=== PATIENT | female | born 1990 | race Asian ===

== ENCOUNTER 2016-09-06 00:12 | Emergency (ER) | payer OTHER ==
[2016-09-06] MEDS ORDERED: KETOROLAC 60 MG/2 ML VIAL IVP STA (00:36)
[2016-09-06] MEDS ORDERED: SODIUM CHLORIDE 0.9% 1,000 ML IV ONE ×2 (00:36→00:47)
[2016-09-06] MEDS ORDERED: KETOROLAC 30 MG/ML VIAL ONE (00:47)
[2016-09-06] MEDS ORDERED: cefTRIAXone 1 GM in SODIUM CHLORIDE 0.9% MINIBAG 100 ML IV STA (01:27)
[2016-09-06] MEDS ORDERED: DOXYCYCLINE 100 MG TABLET PO STA (01:27)
[2016-09-06] MEDS ORDERED: HYDROmorphone 1 MG/ML SYRINGE IVP STA (01:27)
[2016-09-06] MEDS ORDERED: cefTRIAXone 1 GM VIAL ONE (01:30)
[2016-09-06] MEDS ORDERED: HYDROmorphone 1 MG/ML SYRINGE ONE (01:30)
[2016-09-06] MEDS ORDERED: DOXYCYCLINE 100 MG TABLET PO ONE (01:30)
== END 2016-09-06 02:08 | disposition home or self-care (01) ==
DX: N76.0 Acute vaginitis (principal); R10.33 Periumbilical pain
CPT/HCPCS: 36415; 80053; 81003; 81025; 83690; 85025; 87210; 87491; 87591; 96374; 96375; 99284; A9270; J1170

== ENCOUNTER 2017-03-14 17:12 | Emergency (ER) | payer OTHER ==
[2017-03-14 17:18] VITALS: BP 107/67
[2017-03-14 17:36] LABS: BILIRUBIN,URINE NEGATIVE (NEGATIVE)
[2017-03-14 17:37] LABS: HCG UR QUAL NEGATIVE
[2017-03-14 17:43] LABS: UA w/ MICROSCOPIC CHARGE YES; UR CULTURE IF IND INDICATED
[2017-03-14] MEDS ORDERED: PHENAZOPYRIDINE 100 MG TABLET PO STA (17:44)
[2017-03-14] MEDS ORDERED: SULFAMETH/TRIMETH DS 800/160 MG TABLET PO STA (17:44)
--- NOTE | 2017-03-14 17:44 | ED Physician Documentation ---
History of Present Illness - Stated complaint Stated Complaint: FEMALE - Chief complaint Chief Complaint: UTI - History obtained from History obtained from: Patient - History of Present Illness Timing: Other (2 days frequency and dysuria c/w prior utis. No flank pain but maybe fever.) Review of Systems Constitutional: reports: Fever, Fatigue. denies: Chills Cardiac: denies: Chest pain / pressure, Palpitations Respiratory: denies: Dyspnea, Cough GI: denies: Nausea, Vomiting, Diarrhea : reports: Dysuria, Frequency PD PAST MEDICAL HISTORY - Past Medical History Cardiovascular: None Respiratory: None Neuro: None Endocrine/Autoimmune: None GI: None NETWORK MANAGER: None - Past Surgical History Past Surgical History: No - Present Medications Home Medications: Ambulatory Orders Medication Instructions Recorded Confirmed Phenazopyridine HCl [Pyridium] 200 mg PO TID #6 tablet 03/14/17 Sulfamethoxazole/Trimethoprim 1 each PO BID 7 Days tablet 03/14/17 [Sulfamethoxazole-Tmp Ds Tablet] - Allergies Allergies/Adverse Reactions: Allergies Allergy/AdvReac Type Severity Reaction Status Date / Time Seaweed Allergy Unknown Uncoded 09/06/16 00:17 - Social History Does the pt smoke?: No Smoking Status: Never smoker Does the pt drink ETOH?: No Does the pt have substance abuse?: No - Immunizations Immunizations are current?: Yes PD ED PE NORMAL - Vitals Vital signs reviewed: Yes - General General: Alert and oriented X 3, No acute distress - Abdomen Abdomen: Soft, Non tender - Back Back: No CVA TTP - Extremities Extremities: No edema, No calf tenderness / cord - Neuro Neuro: Alert and oriented X 3, Normal speech - Psych Psych: Normal mood, Normal affect Results - Vitals Vitals: Vital Signs - 24 hr 03/14/17 17:15 Temperature 36.2 C L Heart Rate 68 Respiratory 16 Rate Blood Pressure 107/67 O2 Saturation 100 Oxygen O2 Source Room air - Labs Labs: Laboratory Tests 03/14/17 03/14/17 17:20 17:20 Urine Color LT. YELLOW Urine Clarity CLEAR Urine pH 6.0 Ur Specific [place] <=1.005 <=1.005 Urine Protein NEGATIVE Urine Glucose (UA) NEGATIVE Urine Ketones NEGATIVE Urine Occult Blood TRACE-INTA Urine Nitrite NEGATIVE Urine Bilirubin NEGATIVE Urine Urobilinogen 0.2 (NORMAL) Ur Leukocyte Esterase TRACE H Urine RBC 0-5 Urine WBC 6-10 H Ur Squamous Epith Cells NONE SEEN Urine Bacteria None Seen Ur Microscopic Review INDICATED Urine Culture Comments INDICATED Urine HCG, Qual NEGATIVE Departure - Departure Disposition: 01 Home, Self Care Clinical Impression: Pyelonephritis Condition: Good Record reviewed to determine appropriate education?: Yes Instructions: Pyelonephritis Dc Prescriptions: Phenazopyridine HCl [Pyridium] 200 mg PO TID #6 tablet Sulfamethoxazole/Trimethoprim [Sulfamethoxazole-Tmp Ds Tablet] 1 each PO BID 7 Days tablet Comments: We will culture your urine, the results should be done in 48-72 hours. If an antibiotic change is necessary we will call you. Return if worse in the meantime, especially if you develop increasing flank pain, fevers, or cannot keep down the medication. Call your doctor to arrange a follow-up appointment, make the next available appointment. In the interim, return anytime if worse or if new symptoms develop. Forms: Activity restrictions
[2017-03-14] MEDS ORDERED: PHENAZOPYRIDINE 100 MG TABLET PO ONE (18:31)
[2017-03-14] MEDS ORDERED: SULFAMETH/TRIMETH DS 800/160 MG TABLET PO ONE (18:31)
== END 2017-03-14 18:31 | disposition home or self-care (01) ==
LOC: ED 17:12
DX: N12 Tubulo-interstitial nephritis, not specified as acute or chronic (principal)
CPT/HCPCS: 81001; 81025; 87086; 99283; A9270; 81003

== ENCOUNTER 2017-05-19 05:32 | Emergency (ER) | payer OTHER ==
--- NOTE | 2017-05-19 05:51 | ED Physician Documentation ---
PD HPI FEMALE - History obtained from History obtained from: Patient, Family - History of Present Illness Timing - onset: How many days ago (3) Timing - details: Gradual onset, Still present Associated symptoms: Pelvic pain, Vaginal discharge, Dysuria. No: Vaginal bleeding, Genital sore/lesion Similar symptoms before: No diagnosis Recently seen: Emergency Dept <Nathen Aguirre - Last Filed: 05/19/17 07:16> - History of Present Illness Timing - duration: Days (3) Contributing factors: Other (trying to get , irregular periods). No: Oral contraceptive <Niko Barnes - Last Filed: 05/19/17 08:54> - Stated complaint Stated Complaint: LOWER ABDOMINAL PAIN - Chief complaint Chief Complaint: Abd Pain - Additional information Additional information: Patient is a 27 year old female with no significant past medical history who is presenting to the emergency dpeartment for a three day history of pelvic pain. Patient states that it is worse on her left, but it across her lower abdomen. (Nathen Aguirre) Review of Systems Constitutional: denies: Fever, Chills Eyes: denies: Loss of vision, Photophobia Ears: denies: Ear pain Nose: reports: Reviewed and negative Throat: reports: Reviewed and negative Cardiac: reports: Reviewed and negative Respiratory: denies: Dyspnea, Cough, Wheezing GI: reports: Abdominal Pain. denies: Nausea, Vomiting, Constipation, Diarrhea : reports: Discharge. denies: Dysuria, Frequency, Vaginal bleeding Musculoskeletal: denies: Neck pain, Back pain, Extremity pain Neurologic: denies: Generalized weakness, Focal weakness, Numbness Immunocompromised: denies: Immunocompromised <Nathen Aguirre - Last Filed: 05/19/17 07:16> PD PAST MEDICAL HISTORY - Past Medical History Cardiovascular: None Respiratory: None Neuro: None Endocrine/Autoimmune: None GI: None LAY OUT TECHNICIAN: None - Past Surgical History Past Surgical History: No - Social History Does the pt smoke?: No Smoking Status: Never smoker Does the pt drink ETOH?: No Does the pt have substance abuse?: No - Immunizations Immunizations are current?: Yes <Nathen Aguirre - Last Filed: 05/19/17 07:16> <Niko Barnes - Last Filed: 05/19/17 08:54> - Allergies Allergies/Adverse Reactions: Allergies Allergy/AdvReac Type Severity Reaction Status Date / Time Seaweed Allergy Unknown Uncoded 05/19/17 05:39 PD ED PE NORMAL - Vitals Vital signs reviewed: Yes - General General: Alert and oriented X 3, No acute distress, Well developed/nourished - HEENT HEENT: Atraumatic, PERRL - Neck Neck: Supple, no meningeal sign, No JVD - Cardiac Cardiac: RRR, No murmur - Respiratory Respiratory: No respiratory distress - Abdomen Abdomen: Soft, Non tender, Non distended - Derm Derm: Normal color, Warm and dry, No rash - Extremities Extremities: No deformity, No tenderness to palpate, Normal ROM s pain - Neuro Neuro: Alert and oriented X 3, No motor deficit, No sensory deficit, Normal speech - Psych Psych: Normal mood <Nathen Aguirre - Last Filed: 05/19/17 07:16> PD ED PE EXPANDED - Female Female : Vaginal Discharge (mild vaginal discharge and cervicitis), Cultures sent, Special Education Aide present. No: CMT <Nathen Aguirre - Last Filed: 05/19/17 07:16> Results - Rads (name of study) Pelvic non-OB with Doppler Radiology: Prelim report reviewed (Impression: 1. Small complicated right ovarian cyst, corpus luteum versus hemorrhagic cyst. 2. Otherwise unremarkable pelvic ultrasound.), EMP read indepedently, See rad report <Niko Barnes - Last Filed: 05/19/17 08:54> - Vitals Vitals: Vital Signs - 24 hr 05/19/17 05/19/17 05:36 07:29 Temperature 36.4 C L Heart Rate 79 65 Respiratory 16 15 Rate Blood Pressure 97/71 93/65 O2 Saturation 98 100 Oxygen O2 Source Room air - Labs Labs: Laboratory Tests 05/19/17 05/19/17 05/19/17 03:40 05:57 05:57 WBC 6.7 RBC 4.48 Hgb 13.3 Hct 39.9 MCV 89.1 MCH 29.6 MCHC 33.2 RDW 12.9 Plt Count 263 MPV 7.7 L Neut # 4.2 Lymph # 1.9 [place] # 0.5 Eos # 0.0 Baso # 0.0 Absolute Nucleated RBC 0.00 Nucleated RBC % 0.0 Sodium 135 Potassium 3.4 L Chloride 104 Carbon Dioxide 24 Anion Gap 7.0 BUN 13 Creatinine 0.6 Estimated GFR (MDRD) 122 Glucose 85 Calcium 8.9 Total Bilirubin 0.7 AST 21 ALT 19 Alkaline Phosphatase 34 L Total Protein 8.0 Albumin 4.5 Globulin 3.5 Albumin/Globulin Ratio 1.3 Lipase 24 Urine Color YELLOW Urine Clarity CLEAR Urine pH 6.0 Ur Specific [place] 1.010 Urine Protein NEGATIVE Urine Glucose (UA) NEGATIVE Urine Ketones NEGATIVE Urine Occult Blood NEGATIVE Urine Nitrite NEGATIVE Urine Bilirubin NEGATIVE Urine Urobilinogen 0.2 (NORMAL) Ur Leukocyte Esterase NEGATIVE Ur Microscopic Review NOT INDICATED Urine Culture Comments NOT INDICATED Urine HCG, Qual NEGATIVE PD MEDICAL DECISION MAKING <Nathen Aguirre - Last Filed: 05/19/17 07:16> - ED course Complexity details: reviewed old records, reviewed results, considered differential, d/w patient <Niko Barnes - Last Filed: 05/19/17 08:54> - ED course ED course: 27-year-old female with a 3 day history of lower pelvic cramping pain has right ovarian cyst hemorrhagic versus corpus luteum on the right side. I suspect this may be the cause of her pelvic pain. I have asked patient to follow-up with her LAY OUT TECHNICIAN doctor. She does not want pain medications. She states she has not even tried ibuprofen or Tylenol as the pain has not bothered her that bad ( at max) (Niko Barnes) Departure <Nathen Aguirre - Last Filed: 05/19/17 07:16> <Niko Barnes - Last Filed: 05/19/17 08:54> - Departure Disposition: 01 Home, Self Care Clinical Impression: Pelvic pain Ovarian cyst Qualifiers: Laterality: right Qualified Code(s): N83.201 - Unspecified ovarian cyst, right side Condition: Good Instructions: ED Pelvic Pain UKO, ED Cyst Ovarian Follow-Up: primary,care provider [Other] - Within 3 Days Comments: Your diagnostics today were withing normal limits. You did have some vaginal discharge and cervicitis and cultures were sent. You will be called in the next three days if the cultures are positive. You should refrain from sexual intercourse until you get the results back. You should follow up with your doctor/ob if your symptoms persist. You may return to the emergency department at any time for new worsening or uncontrollable symptoms. Follow up with your LAY OUT TECHNICIAN doctor about the ovarian cyst.
[2017-05-19 06:15] LABS: BILIRUBIN,URINE NEGATIVE (NEGATIVE)
[2017-05-19 06:17] LABS: HCG UR QUAL NEGATIVE; UA CHARGE (STRIP ONLY) YES; UR CULTURE IF IND NOT INDICATED
[2017-05-19 06:31] LABS: BASOPHILS % (AUTO) 0.7 %; EOSINOPHILS % (AUTO) 0.6 %; HCT - HEMATOCRIT 39.9 % (37.0-47.0); HGB - HEMOGLOBIN 13.3 g/dL (12.0-16.0); LYMPHOCYTES # (AUTO) 1.9 10^3/uL (1.5-3.5); MEAN CORPUSCULAR HEMOGLOBIN 29.6 pg (27.0-31.0); MEAN CORPUSCULAR HGB CONC 33.2 g/dL (32.0-36.0); MEAN CORPUSCULAR VOLUME 89.1 fL (81.0-99.0); MEAN PLATELET VOLUME 7.7 fL (7.9-10.8); MONOCYTES # (AUTO) 0.5 10^3/uL (0.0-1.0); MONOCYTES % (AUTO) 6.7 %; NEUTROPHILS # (AUTO) 4.2 10^3/uL (1.5-6.6); RED BLOOD COUNT 4.48 10^6/uL (4.20-5.40); RED CELL DISTRIBUTION WIDTH 12.9 % (12.0-15.0); UNCORRECTED WHITE BLOOD COUNT 6.7 x10^3/uL; WHITE BLOOD COUNT 6.7 x10^3/uL (4.8-10.8)
[2017-05-19 06:41] LABS: ALBUMIN/GLOBULIN RATIO 1.3 (1.0-2.2); BILIRUBIN,TOTAL 0.7 mg/dL (0.2-1.0); CALCIUM 8.9 mg/dL (8.5-10.3); CREATININE 0.6 mg/dL (0.4-1.0); POTASSIUM 3.4 mmol/L (3.5-5.0)
--- NOTE | 2017-05-19 08:28 | Ultrasound Preliminary Report ---
Exam: US PELVIC NON OB W/DOPPLER LTD IMPRESSION: 1. Small complicated right ovarian cyst, corpus luteum versus hemorrhagic cyst. 2. Otherwise unremarkable pelvic ultrasound. [facility] SITE ID: [id number]
--- NOTE | 2017-05-19 08:30 | Ultrasound Report ---
EXAM: PELVIC ULTRASOUND EXAM DATE: 05/19/2017 08:15 AM. CLINICAL HISTORY: Left sided pelvic pain. COMPARISON: None. TECHNIQUE: Realtime transabdominal pelvic scan performed to identify the uterus and adnexa and as an overview of other pelvic structures, followed by transvaginal scan to provide greater detail of the u terus and adnexa, with static image documentation. FINDINGS: Uterus: 7.0 x 4.4 x 5.7 cm, volume 91 cc. Anteverted position. Normal overall size and echotexture. Masses: None. Endometrium: 14 mm. Proliferative appearance. Cervix: Unremarkable. Right Ovary: 4.2 x 1.8 x 3.7 cm, volume 14 cc. Normal echotexture and blood flow. Complicated 2.1 cm cystic structure, corpus luteum versus hemorrhagic cyst. Left Ovary: 2.9 x 1.6 x 2.1 cm, volume 5.1 cc. Normal echotexture and blood flow. Free Fluid: None. Other: None. IMPRESSION: 1. Small complicated right ovarian cyst, corpus luteum versus hemorrhagic cyst. 2. Otherwise unremarkable pelvic ultrasound. [facility] Referring Provider Line: [phone] SITE ID: [id number]
--- NOTE | 2017-05-19 08:32 | Ultrasound Preliminary Report ---
Exam: US TRANSVAGINAL Please see report for accession [id number]. SITE ID: [id number]
--- NOTE | 2017-05-19 08:35 | Ultrasound Report ---
Please see report for accession [id number]. Referring Provider Line: [phone] SITE ID: [id number]
[2017-05-19 09:06] VITALS: BP 89/58
== END 2017-05-19 09:08 | disposition home or self-care (01) ==
LOC: ED 05:32
DX: N83.201 Unspecified ovarian cyst, right side (principal); R10.2 Pelvic and perineal pain
CPT/HCPCS: 36415; 76830; 76856; 80053; 81001; 81003; 81025; 83690; 85025; 87086; 87491; 87591; 93976; 99283

== ENCOUNTER 2018-05-21 22:48 | Emergency (ER) | payer OTHER ==
[2018-05-21] MEDS ORDERED: diphenhydrAMINE INJ 50 MG/ML VIAL IM STA (23:05)
[2018-05-21] MEDS ORDERED: EPINEPHrine 1 MG/ML AMP IM STA (23:05)
[2018-05-21] MEDS ORDERED: predniSONE 20 MG TABLET PO STA (23:05)
--- NOTE | 2018-05-21 23:27 | ED Physician Documentation ---
History of Present Illness - Stated complaint Stated Complaint: ALLERGIC REACTION - Chief complaint Chief Complaint: Allergic Rx - History obtained from History obtained from: Patient, Family - History of Present Illness Timing: How many hours ago (2) Pain level max: 0 Pain level now: 0 - Additonal information Additional information: 28-year-old female who states that she was dying her hair tonight when she rash and itching. Did have some trouble breathing initially but this resolved. Did not take anything prior to arriving in the emergency department. Does not have a history of allergic reactions. No tongue swelling. She denies any possibility of . Nothing makes it better or worse. Review of Systems Constitutional: denies: Fever, Chills GI: denies: Vomiting, Diarrhea : denies: Dysuria Musculoskeletal: denies: Neck pain, Back pain Neurologic: denies: Headache PD PAST MEDICAL HISTORY - Past Medical History Past Medical History: No Cardiovascular: None Respiratory: None Endocrine/Autoimmune: None GI: None SPA HOST: None - Past Surgical History Past Surgical History: No - Present Medications Home Medications: Ambulatory Orders Medication Instructions Recorded Confirmed predniSONE [Deltasone] 40 mg PO DAILY 3 Days tablet 05/21/18 - Allergies Allergies/Adverse Reactions: Allergies Allergy/AdvReac Type Severity Reaction Status Date / Time Seaweed Allergy Unknown Uncoded 05/21/18 22:58 - Social History Does the pt smoke?: No Smoking Status: Never smoker Does the pt drink ETOH?: No Does the pt have substance abuse?: No - Immunizations Immunizations are current?: Yes PD ED PE NORMAL - Vitals Vital signs reviewed: Yes - General General: Alert and oriented X 3, No acute distress - HEENT HEENT: PERRL, Moist mucous membranes, Pharynx benign - Neck Neck: Supple, no meningeal sign - Cardiac Cardiac: RRR, Strong equal pulses - Respiratory Respiratory: No respiratory distress, Clear bilaterally - Abdomen Abdomen: Soft, Non tender, Non distended - Derm Derm: Warm and dry, Other (Diffuse urticaria over the entire body. ) - Extremities Extremities: No edema - Neuro Neuro: Alert and oriented X 3 - Psych Psych: Normal mood, Normal affect Results - Vitals Vitals: Vital Signs - 24 hr 05/21/18 05/21/18 22:56 23:54 Temperature 36.5 C 36.6 C Heart Rate 96 86 Respiratory 18 15 Rate Blood Pressure 114/79 100/66 O2 Saturation 97 100 Oxygen O2 Source Room air PD MEDICAL DECISION MAKING - ED course Complexity details: re-evaluated patient, considered differential, d/w patient, d/w family ED course: 28-year-old female who presents to the emergency department diffuse urticaria from an allergic reaction. Given Benadryl, epinephrine and prednisone. Symptoms resolved. Feels much better. Did not have any airway issues in the emergency department. will be with her tonight and monitor her. Patient and family counseled regarding signs and symptoms for which I believe and urgent re-evaluation would be necessary. Patient with good understanding of and agreement to plan and is comfortable going home at this time This document was made in part using voice recognition software. While efforts are made to proofread this document, sound alike and grammatical errors may occur. Departure - Departure Disposition: 01 Home, Self Care Clinical Impression: Allergic reaction Qualifiers: Encounter type: initial encounter Qualified Code(s): T78.40XA - Allergy, unspecified, initial encounter Condition: Good Instructions: ED Allergic Reaction General Other Follow-Up: your,doctor as needed [Other] Prescriptions: predniSONE [Deltasone] 40 mg PO DAILY 3 Days tablet Comments: Take the prednisone until gone. You can also use Benadryl as needed for itching at home. Return if you worsen. Forms: Activity restrictions Discharge Date/Time: 05/21/18 23:55
[2018-05-21 23:55] VITALS: BP 100/66
== END 2018-05-21 23:55 | disposition home or self-care (01) ==
LOC: ED 22:48
DX: L23.4 Allergic contact dermatitis due to dyes (principal); X58.XXXA Exposure to other specified factors, initial encounter
CPT/HCPCS: 96372; 99283; J1200; J7512